=== PATIENT | male | born 1975 | race Caucasian/White ===

== ENCOUNTER 2023-11-02 10:50 | Emergency (ER) | payer BC, SELFPAY ==
[2023-11-02 11:07] VITALS: BP 168/102; PULSE 89; RESP 16; TEMP 37.2; O2SAT 96; BMI 28.7
--- NOTE | 2023-11-02 11:22 | ED.GENADULT ---
HPI - General Adult General Date Seen: 11/02/23 Chief complaint: Abdominal Pain Stated complaint: left side pain Time Seen by Provider: 11/02/23 11:22 History of Present Illness HPI narrative: Very pleasant generally healthy 48-year-old male presenting to the ER today for left upper quadrant abdominal pain. He is generally healthy. No history of kidney stones or other long-term medical conditions. No regular medications. He has been healthy lately. No recent illnesses. He recalls that he had a little bit of pain in that area in his left upper quadrant and left lateral abdominal wall below his ribs yesterday. However got worse overnight. He says he was woken from sleep around 3:00 a.m. with intense pain. He took some ibuprofen and it got well enough that he was able to go back to sleep. This morning the pain is still there any notes that is worse whenever he moves wrong or twists. No other symptoms. No fever chills. No cough. No trouble breathing. No rib pain. No falls or direct trauma. No rash. Urination has been normal. No dysuria, urgency, hematuria. Bowel movements normal. No right-sided pain. No pain radiating up to his chest or down to his legs. Related Data Home Medications Medication Instructions Recorded Confirmed amoxicillin 875 mg tablet 875 mg PO BID 11/02/23 11/02/23 Previous Rx's Medication Instructions Recorded hydrocodone 5 mg-acetaminophen 325 1 tab PO Q4-6H PRN pain #10 tabs 11/02/23 mg tablet ondansetron 4 mg disintegrating 4 mg PO Q8H PRN nausea and 11/02/23 tablet vomiting 4 days #10 tabs Allergies Allergy/AdvReac Type Severity Reaction Status Date / Time No Known Drug Allergies Allergy Verified 11/02/23 11:11 [facility] Social History Smoking Status: Former smoker How often do you have a drink containing alcohol: 4 or more times a week How many standard drinks containing alcohol do you have on a typical day: 1 or 2 How often do you have six or more drinks on one occasion: Never AUDIT-C Alcohol total score: 4 Non-prescribed substance use: denies use Exam Narrative: Exam Narrative: Constitutional: Appears well-developed and well-nourished. Alert. Uncomfortable but polite hand Conversant. Non toxic. HENT: Head: Atraumatic. Nose: Nose normal. Mouth/Throat: Oral mucosa is clear and moist. no trismus. Pharynx normal. Tonsils symmetric. No tonsillar enlargement, erythema, or exudate. Eyes: Conjunctivae normal. EOM normal. Pupils equal, round, and reactive to light. No scleral icterus. Neck: Normal range of motion. Neck supple. No tracheal deviation present. Cardiovascular: Normal rate, regular rhythm. No gallop. No friction rub. No murmur heard. Symmetric radial artery pulses Pulmonary/Chest: Effort normal. No stridor. No respiratory distress. No wheezes. No rales. No rhonchi . No tenderness. No rash. No bruising. Abdominal: Soft. Bowel sounds normal. No distension. No mass. Left upper quadrant and far left lateral abdominal tenderness. No posterior CVA tenderness. No right-sided tenderness No rebound. No guarding. Musculoskeletal: RUE: Normal range of motion. No tenderness. No deformity LUE: Normal range of motion. No tenderness. No deformity RLE: Normal range of motion. No edema. No tenderness. No deformity LLE: Normal range of motion. No edema. No tenderness. No deformity Neurological: Alert and oriented to person, place, and time. Normal strength. CN II-VII intact. No sensory deficit. GCS eye subscore is 4. GCS verbal subscore is 5. GCS motor subscore is 6. Normal coordination Skin: No rash or shingles. No bruising. Skin is warm and dry. No rash noted. No pallor. Normal capillary refill. Psychiatric: Normal mood. Normal affect. Const: Vital Signs, click to edit/add: Vital Signs - 24 hr 11/02/23 11:07 11/02/23 13:15 Temperature 99.0 F Pulse Rate [Right] 89 96 Respiratory Rate 16 16 Blood Pressure [Ri ght Upper Arm] 168/102 H 148/101 H Pulse Oximetry 96 98 Oxygen Delivery Me thod Room Air Room Air Course Vital Signs Vital signs: Initial Vital Signs Temperature 99.0 F 11/02/23 11:07 Temperature Source Temporal Artery Scan 11/02/23 11:07 Pulse Rate 89 11/02/23 11:07 Respiratory Rate 16 11/02/23 11:07 Blood Pressure 168/102 H 11/02/23 11:07 Blood Pressure Mean 124 H 11/02/23 11:07 Blood Pressure Position Sitting 11/02/23 11:07 Pulse Oximetry 96 11/02/23 11:07 Oxygen Delivery Method Room Air 11/02/23 11:07 Vital Signs Temperature 99.0 F 11/02/23 11:07 Pulse Rate 89 11/02/23 11:07 Respiratory Rate 16 11/02/23 11:07 Blood Pressure 168/102 H 11/02/23 11:07 Pulse Oximetry 96 11/02/23 11:07 Oxygen Delivery Method Room Air 11/02/23 11:07 Temperature 99.0 F 11/02/23 11:07 Pulse Rate 96 11/02/23 13:15 Respiratory Rate 16 11/02/23 13:15 Blood Pressure 148/101 H 11/02/23 13:15 Pulse Oximetry 98 11/02/23 13:15 Oxygen Delivery Method Room Air 11/02/23 13:15 Medications Administered Medications: Discontinued Medications Generic Name Dose Route Start Last Admin Trade Name Freq PRN Reason Stop Dose Admin Ketorolac Tromethamine 15 mg 11/02/23 11:33 11/02/23 11:48 Ketorolac 15 Mg/Ml Inj IVP 11/02/23 11:34 15 mg ONCE ONE Administration Medical Decision Making MDM Narrative Medical decision making narrative: Presented to the Emergency Department with left upper quadrant abdominal pain/left lateral abdomen pain. The differential diagnosis of abdominal pain includes: Bowel Obstruction, Ulcer, Ischemia, Diverticulitis, Pancreatitis, UTI, kidney stone, Enteritis/Colitis, amongst many other etiologies. Less likely would be appendicitis, colitis. No evidence for shingles. No bruising. No signs of abdominal wall injury. No rib pain or chest pain or trouble with breathing. Laboratory testing does not reveal a cause for the patient's pain. White blood cell count is mildly elevated. CT scan shows evidence for acute uncomplicated diverticulitis. Discussed with the patient that typically diverticulitis can be managed without antibiotics simply with supportive care and symptom management. He is already on antibiotics for sinuses so I advised that he she continue that and that may also help with his diverticulitis. No life threatening cause or need for emergent surgery or hospital admission is detected today. The patient was advised that if symptoms do not completely resolve within another 2-3 days re-evaluation with primary care or return to the ED is indicated. The patient also understands that if they worsen, they should return to the ER right away. return precautions discussed. Lab Data Labs: Lab Results 11/02/23 Range/Units 11:40 WBC 12.76 H (4.50-11.00) K/uL RBC 4.91 (4.30-5.90) m/uL Hgb 15.9 (13.5-17.5) gm/dL Hct 46.0 (37.0-53.0) % MCV 94 (80-100) fL MCH 32 (26-34) pg MCHC 35 (32-36) gm/dL RDW Coeff of Nagi 11.5 (11.5-15.5) % Plt Count 226 (140-440) K/uL Neut % (Auto) 82.8 H (42.0-72.0) % Lymph % (Auto) 6.8 L (20-44) % [facility] [facility] % (Auto) 9.8 (0.0-11.0) % Eos % (Auto) 0.2 (0.0-7.0) % Baso % (Auto) 0.2 (0.0-3.0) % Neut # (Auto) 10.60 H (1.7-7.0) K/uL Lymph # (Auto) 0.90 (0.90-2.90) K/uL [facility] # (Auto) 1.30 H (0.00-0.90) K/UL Eos # (Auto) 0.00 (0.00-0.50) K/uL Baso # (Auto) 0.00 (0.00-0.30) K/uL Abs Immat Gran (auto) 0.00 (0.00-0.30) K/uL Imm/Tot Granulo (auto) 0.2 % Sodium 137 (135-149) mmol/L Potassium 3.9 (3.6-5.1) mmol/L Chloride 105 (96-114) mmol/L Carbon Dioxide 28 (20-32) mmol/L Anion Gap 4 L (7-15) mEq/L BUN 19 (7-30) mg/dL Creatinine 1.1 (0.5-1.5) mg/dL Estimated Creat Clear 82.95 Estimated GFR 82 ml/min Glucose 104 (60-115) mg/dL Calcium 8.8 (8.4-10.6) mg/dL Total Bilirubin 1.2 (0.1-1.5) mg/dL AST 31 (12-35) U/L ALT 42 (4-50) U/L Alkaline Phosphatase 61 (40-150) U/L Total Protein 7.7 (6.0-8.3) g/dL Albumin 4.6 (3.3-5.0) g/dL Lipase 93 (23-300) U/L Imaging Data CT scan - abdomen: Attestation: I have reviewed the pertinent imaging results. My impression: IMPRESSION: Acute uncomplicated descending colonic diverticulitis. No drainable fluid collections. Discharge Plan Discharge Clinical Impression: Diverticulitis Patient Disposition: Home, Self-Care Condition: Stable Instructions: Diverticulitis (DC) Additional Instructions: As we discussed, please come back to ER right away if you have worsening symptoms such as worsening pain, fever, uncontrolled vomiting or dehydration, weakness, bloody stools. If her not completely improved within 3 days, please come back to the ER or recheck with your doctor. Use caution with prescription pain killers because they cause drowsiness. Do not drive for 6 hours after you take a pain pill. Pain killers can also cause constipation and can be addictive. Use [id number] medications such as Tylenol or ibuprofen 1st and use the prescription pain medication only if needed. Prescriptions: New hydrocodone-acetaminophen 5-325 mg tablet 1 tab PO Q4-6H PRN (Reason: pain) Qty: 10 0RF ondansetron 4 mg tablet,disintegrating 4 mg PO Q8H PRN (Reason: nausea and vomiting) 4 Days Qty: 10 0RF No Action amoxicillin 875 mg tablet 875 mg PO BID Follow Up/Referrals: Provider,Not a Local [Primary Care Provider] - Stand Alone Forms: [employer] Info Instructions
--- NOTE | 2023-11-02 11:33 | CT_ITS ---
Patient: KIMBERLY GODDARD Facility:?[facility] Patient ID:?[id number] Site Patient ID:?[id number]. Site :?[id number] Study:?CT-Abdomen/Pelvis W/IV-11/02/2023 12:35:48 PM Ordering Physician:MANUEL Final Report: INDICATION: Left upper quadrant pain. TECHNIQUE: CT abdomen and pelvis acquired with 98 cc Isovue 370 IV contrast. COMPARISON: None. FINDINGS: Lower chest: Scattered atelectasis. Liver: Unremarkable. Normal in size and attenuation. No suspicious masses. Gallbladder and bile ducts: Unremarkable. No stones or inflammation. No biliary dilatation. Pancreas: Unremarkable. No mass or inflammation. Spleen: Unremarkable. Normal in size. No masses. Adrenal glands: Unremarkable. No nodules. Kidneys: Bilateral renal cysts. No suspicious masses, stones, or hydronephrosis. GI tract: Acute uncomplicated descending colonic diverticulitis. No bowel obstruction. Normal appendix. Vasculature: Abdominal aorta is normal in caliber. Mesenteric arteries are patent. Lymph nodes: No lymphadenopathy. Peritoneum/Abdominal Wall: Moderate fat containing umbilical hernia. No free air or significant free fluid. Pelvis: Trace free fluid in the pelvis likely reactive. Prominent prostate gland. Bones: Unremarkable for age. IMPRESSION: Acute uncomplicated descending colonic diverticulitis. No drainable fluid collections. Please note that all CT scans at this facility use dose modulation, iterative reconstruction, and/or weight-based dosing when appropriate to reduce radiation dose to as low as reasonably achievable. Dictated by Xavi Blair MD @ 11/02/2023 12:48:56 PM Signed by:?Xavi Blair MD @11/02/2023 12:48:56 PM (Electronic Signature)
[2023-11-02 11:47] LABS: Basophils Percent Auto 0.2 % (0.0-3.0); Eosinophils Percent Auto 0.2 % (0.0-7.0); Hemoglobin* 15.9 gm/dL (13.5-17.5); Immature Granulocytes Pct Auto 0.2 %; Lymphocytes Percent Auto 6.8 % (20-44); Mean Corpuscular HGB Conc 35 gm/dL (32-36); Mean Corpuscular Hemoglobin 32 pg (26-34); Mean Corpuscular Volume 94 fL (80-100); Monocytes Percent Auto 9.8 % (0.0-11.0); Neutrophils Percent Auto 82.8 % (42.0-72.0); Platelet Count* 226 K/uL (140-440); RDW Coefficient of Variation % 11.5 % (11.5-15.5); Red Blood Count 4.91 m/uL (4.30-5.90); White Blood Count* 12.76 K/uL (4.50-11.00)
[2023-11-02] MEDS: KETOROLAC 15 MG/ML inj IVP (11:48)
[2023-11-02 12:16] LABS: Slide Review Reflex No
[2023-11-02 12:21] LABS: Chloride* 105 mmol/L (96-114)
[2023-11-02 12:22] LABS: Albumin* 4.6 g/dL (3.3-5.0); Potassium* 3.9 mmol/L (3.6-5.1); Sodium* 137 mmol/L (135-149)
[2023-11-02 12:24] LABS: Bilirubin Total* 1.2 mg/dL (0.1-1.5); Creatinine* 1.1 mg/dL (0.5-1.5); Est. Creatinine Clearance* 82.95; Estimated Glomerular Filt Rate 82 ml/min
[2023-11-02 12:25] LABS: Alanine Aminotransferase* 42 U/L (4-50); Alkaline Phosphatase* 61 U/L (40-150); Anion Gap 4 mEq/L (7-15); Aspartate Amino Transferase* 31 U/L (12-35); Blood Urea Nitrogen* 19 mg/dL (7-30); Calcium* 8.8 mg/dL (8.4-10.6); Carbon Dioxide* 28 mmol/L (20-32); Glucose* 104 mg/dL (60-115); Lipase* 93 U/L (23-300); Total Protein* 7.7 g/dL (6.0-8.3)
[2023-11-02 13:15] VITALS: BP 148/101; PULSE 96; RESP 16; O2SAT 98
== END 2023-11-02 13:17 | disposition home or self-care (01) ==
PROVIDERS: Emergency Provider Emergency Medicine
DX: K57.32 Diverticulitis of large intestine without perforation or abscess without bleeding (principal)
CPT/HCPCS: 36415; 74177; 80053; 81001; 83690; 85025; 96374; 99283; J1885; Q9967